=== PATIENT | female | born 1950 | race Caucasian/White ===

== ENCOUNTER → 2016-06-23 | Outpatient (CLI) | payer BC ==
--- NOTE | 2016-06-23 11:42 | KCIC ---
PROCEDURE Two-view chest HISTORY Upper respiratory infection with cough, congestion, fatigue for 1 week COMPARISON None FINDINGS Two views of the chest are submitted. There is no infiltrate, pleural fluid, pneumothorax. Heart size is considered within normal limits. Mild deformity of left posterolateral 6th rib is likely old. IMPRESSION 1. There is no significant infiltrate. Electronically signed by: Harvinder Arauz MD (Jun 23, 2016 11:41:02)
== END | disposition home or self-care (01) ==
LOC: KCIC 11:06
PROVIDERS: ATTEND Nurse Practitioner Family
DX: J06.9 Acute upper respiratory infection, unspecified (principal); R05 Cough; R09.81 Nasal congestion; R53.83 Other fatigue
CPT/HCPCS: 71020

== ENCOUNTER → 2016-09-26 | Outpatient (CLI) | payer BC, MEDICARE ==
[~2016-09-26] MED LIST: REGADENOSON 0.4 MG/5 ML DISP.SYRIN. IV ONE; SOTA80TA48 PO
--- NOTE | 2016-09-26 13:06 | RAD ---
APPROVED REPORT Patient Location : OUT-PATIENT Indications Varicose Veins Deep System Deep Venous Thrombosis present : No Deep Venous Reflux present : No Findings The right and left great saphenous veins are normal in caliber at approximately 4 mm. No evidence of reflux is demonstrated in the bilateral greater saphenous veins. The bilateral lesser saphenous veins were not well visualized. The bilateral saphenofemoral junctions do not demonstrate any evidence of thrombus. Critical Notification Critical Value: No <Conclusion> Negative for reflux in the bilateral greater saphenous veins. Bilateral lesser saphenous veins not well visualized No evidence of perforators bilaterally.
--- NOTE | 2016-09-26 13:09 | CARD ---
APPROVED REPORT EXAM: Two-dimensional and M-mode echocardiogram with Doppler and color Doppler. Other Information Quality : GoodHR: 68bpm Rhythm : NSR INDICATION A fib, Dyspnea on exertion Echo Enhancing Agent Indication: Rule Out Septal Defect Agent/Amount Used: Agitated Saline 8mL 2D DIMENSIONS RVDd2.4 (2.9-3.5cm)Left Atrium(2D)2.5 (1.6-4.0cm) IVSd0.7 (0.7-1.1cm)Aortic Root(2D)2.5 (2.0-3.7cm) LVDd4.1 (3.9-5.9cm)LVOT Diameter2.0 (1.8-2.4cm) PWd0.5 (0.7-1.1cm)LVDs2.5 (2.5-4.0cm) FS (%) 38.4 %SV51.9 ml LVEF(%)69.1 (>50%) Aortic Valve AoV Peak Bala.135.6cm/sAoV VTI32.5cm AO Peak GR.7.4mmHgLVOT Peak Bala.88.3cm/s AO Mean GR.4mmHgAVA (VMAX)2.00cm2 AI P 1/2 Itzq409od Mitral Valve MV E Rosgirrr296.9cm/sMV E Peak Gr.4mmHg MV DECEL QMEG301xmCR A Uivnzmss89.9cm/s MV E Mean Gr.1mmHgE/A Ratio1.7 MV A Bufjtkjs32gy Tricuspid Valve TR P. Hbrzreju096ce/sTR Peak Gr.39mmHg Pulmonary Vein S1 Nbwcocrj04.6cm/sD2 Xypznaqv20.1cm/s PVa ldanqnuy64zdtq LEFT VENTRICLE The left ventricle is normal size. There is normal left ventricular wall thickness. The left ventricu lar systolic function is normal and the ejection fraction is within normal range. The Ejection Fracti on is 60-65%. There is normal LV segmental wall motion. The left ventricular diastolic function and f illing is normal for age. RIGHT VENTRICLE The right ventricle is normal size. There is normal right ventricular wall thickness. The right ventr icular systolic function is normal. ATRIA The left atrium size is normal. The right atrium size is normal. The atrial septum is aneurysmal with no evidence of atrial septal defect or patent foramen ovale by 2-D or Doppler imaging. Injection of bubbles confirmed no interatrial shunt. AORTIC VALVE The aortic valve is mildly sclerotic. The aortic valve is trileaflet. Doppler and Color Flow revealed mild aortic regurgitation. There is no significant aortic valvular stenosis. MITRAL VALVE The mitral valve leaflets are thickened. There is no evidence of mitral valve prolapse. There is no m itral valve stenosis. Doppler and Color Flow revealed mild mitral regurgitation. TRICUSPID VALVE Doppler and Color Flow revealed mild tricuspid regurgitation. The pulmonary artery systolic pressure is estimated at 42 mmHg. There is mild pulmonary hypertension. PULMONIC VALVE The pulmonic valve is obscured, unable to assess. GREAT VESSELS The aortic root is normal in size. The ascending aorta is normal in size. The IVC is normal in size a nd collapses >50% with inspiration. PERICARDIAL EFFUSION There is no evidence of significant pericardial effusion. Critical Notification Critical Value: No <Conclusion> The left ventricular systolic function is normal and the ejection fraction is within normal range. Th e Ejection Fraction is 60-65%. There is normal LV segmental wall motion. The atrial septum is aneurysmal with no evidence of atrial septal defect or patent foramen ovale by 2 -D or Doppler imaging. Injection of bubbles confirmed no interatrial shunt. Doppler and Color Flow revealed mild aortic regurgitation. Doppler and Color Flow revealed mild mitral regurgitation.
--- NOTE | 2016-09-26 14:21 | RAD ---
APPROVED REPORT Test Type: Pharmacological Stress Nurse/Tech: Haylie Grimes R.N. Test Indications: dyspnea Cardiac History: afib, Medications: see ehr Medical History: hypoglycemia Resting ECG: sr Resting Heart Rate: 58 bpm Resting Blood Pressure: 125/67mmHg Pretest Chest Pain: No chest pain Nurse/Tech Notes lungs cta, heart tones regular, good radial pulse Consent: The procedure was explained to the patient in lay terms. Informed consent was witnessed. Shahzad eout was entered into [employer]. History and Stress Test performed by Haylie Grimes R.N. Pharm. Details Pharmacologic stress testing was performed using 0.4mg per 5ml of regadenoson given intravenously ove r 7-10 seconds. Stress Symptoms No chest pain or symptoms.Dyspnea POST EXERCISE Reason for Termination: Infusion complete Target HR: No Max HR: 108 bpm Max Blood Pressure: 123/58mmHg Chest Pain: No. Arrhythmia: No. INTERPRETATION Stress EKG Conclusion: The resting EKG showed a sinus rhythm with mild nonspecific ST T-wave changes. The stress EKG showed mild further ST-T wave changes in the inferior leads that was not diagnostic of ischemia. Imaging Protocol IMAGE PROTOCOL: Rest Tc-99m/stress Tc-99m 1 day Rest: Stress: Viability: Radiopharm.Tc99m BvqgcxguuEn03b Sestamibi Dose10.9mCi 32mCi Duration 15min. 10min. Img Date 09/26/2016 09/26/2016 Inj-Img Vhbk86kja. 90min. Rest Admin Site:IV - Left AntecubitalAdministrator:Anisa Barboza RT (R)(N) Stress Admin Site: IV - Left AntecubitalAdministrator: ERICKSON Strauss, ARRT (R)(N) STRESS DATA End Diast. Vol.42.0mlAv. Heart Rate80.0bpm End Syst. Vol.3.0mlCO Index BSA0.0L/min Myocardial Mass88.0gEject. Kipeweue31.0% Stress Rates Pk. Fill Rate4.42EDV/secLVtime Pk. Fill 188.45msec Pk. Empty Rate5.59ESV/secLVtime Pk. Exgne126.94msec 1/3 Pk. Fill0.76EDV/sec Stress Scores Regional WT0.00Summed WT0.00 Regional WM0.00Summed WM0.00 LV Perfusion The stress scans showed no significant defects. The rest scans showed no significant defects. Nuclear imaging shows no reversible ischemia or infarct. Wall Motion Normal left ventricular systolic function with an ejection fraction of greater than 70%. LV Perf. Quant 17 Seg. SSS0.00 17 Seg. SRS0.00 17 Seg. SDS0.00 Stress Defect Extent (% LAD)0.00Rest Defect Extent (% LAD)0.00Rev. Defect Extent (% LAD)0.00 Stress Defect Extent (% LCX) 0.00Rest Defect Extent (% LCX)0.00Rev. Defect Extent (% LCX)0.00 Stress Defect Extent (% RCA)0.00Rest Defect Extent (% RCA)0.00Rev. Defect Extent (% RCA)0.00 Stress Defect Extent (% KELLY)0.00Rest Defect Extent (% KELLY)0.00Rev. Defect Extent (% KELLY)0.00 Conclusion 1. No EKG changes with exertion that are diagnostic for ischemia. 2. Nuclear imaging shows no reversible ischemia or infarct. 3. Normal left ventricular systolic function with an ejection fraction of greater than 70%. 4. Low risk Lexiscan nuclear stress test.
== END | disposition home or self-care (01) ==
LOC: NM 08:02
PROVIDERS: ATTEND Internal Medicine Cardiovascular Disease
DX: I08.3 Combined rheumatic disorders of mitral, aortic and tricuspid valves (principal); I27.2 Other secondary pulmonary hypertension; I48.91 Unspecified atrial fibrillation; I83.93 Asymptomatic varicose veins of bilateral lower extremities
CPT/HCPCS: 78452; 93017; 93970; 96374; 96375; 96376; A9500; C8929; J2785

== ENCOUNTER → 2017-04-28 | Outpatient (CLI) | payer MEDICARE, BC ==
[2017-04-28 08:20] LABS: ISTAT CREATININE 0.8 mg/dL (0.6-1.1)
[2017-04-28] MEDS: GADOBUTROL 7.5 MMOL/7.5 ML VIAL IV (08:30)
== END | disposition home or self-care (01) ==
LOC: KCIC MRI 07:41
DX: I73.9 Peripheral vascular disease, unspecified (principal); D35.2 Benign neoplasm of pituitary gland; H53.2 Diplopia; G93.9 Disorder of brain, unspecified; J32.9 Chronic sinusitis, unspecified
CPT/HCPCS: 70553; 82565; A9585

== ENCOUNTER 2017-05-22 10:27 | Inpatient (IN) | payer MEDICARE, BC ==
[2017-05-22] MEDS: IV NORMAL SALINE 500ML BAG 500 ML IV ×2 (11:08)
[2017-05-22 11:09] LABS: ANION GAP 13 (6-14); BLOOD UREA NITROGEN 15 mg/dL (7-20); CALCIUM 8.4 mg/dL (8.5-10.1); CARBON DIOXIDE 25 mmol/L (21-32); CHLORIDE 97 mmol/L (98-107); CREATININE 0.6 mg/dL (0.6-1.0); GFR 100.3; GLUCOSE 115 mg/dL (70-99); SODIUM 135 mmol/L (136-145)
[2017-05-22 11:12] LABS: BASO % 0 % (0-3); EOS % 0 % (0-3); HEMOGLOBIN 14.3 g/dL (12.0-15.5); LYMPH # 0.6 x10^3/uL (1.0-4.8); LYMPH % 5 % (24-48); MEAN CORPUSCULAR HEMOGLOBIN 33 pg (25-35); MEAN CORPUSCULAR HGB CONC 34 g/dL (31-37); MEAN CORPUSCULAR VOLUME 98 fL (79-100); MONO # 0.6 x10^3/uL (0.0-1.1); MONO % 5 % (0-9); NEUT # 9.5 x10^3uL (1.8-7.7); NEUT % 89 % (31-73); PLATELET COUNT 261 x10^3/uL (140-400); RED BLOOD COUNT 4.29 x10^6/uL (3.50-5.40); RED CELL DISTRIBUTION WIDTH 12.8 % (11.5-14.5); WHITE BLOOD COUNT 10.7 x10^3/uL (4.0-11.0)
[2017-05-22 11:15] LABS: ALBUMIN 3.4 g/dL (3.4-5.0); ALK PHOS 95 U/L (46-116); ALT (SGPT) 19 U/L (14-59); AST (SGOT) 29 U/L (15-37); DIRECT BILIRUBIN 0.2 mg/dL (0.0-0.2); LIPASE 138 U/L (73-393); TOTAL BILIRUBIN 0.6 mg/dL (0.2-1.0); TOTAL PROTEIN 6.3 g/dL (6.4-8.2)
[2017-05-22] MEDS: ONDANSETRON PF 4 MG/2 ML VIAL. IV ×2 (11:17→16:48)
[2017-05-22 11:18] LABS: ADD MAN DIFF? YES
[2017-05-22 11:18] LABS: TROPONINI < 0.017 ng/mL (0.000-0.055)
[2017-05-22 11:32] LABS: LACTIC ACID 1.4 mmol/L (0.4-2.0)
[2017-05-22 11:40] LABS: INFLUENZA A PATIENT NEGATIVE (NEGATIVE); INFLUENZA B PATIENT NEGATIVE (NEGATIVE); OBC FLU VALID
[2017-05-22 13:04] LABS: BILIRUBIN,URINE NEGATIVE (NEG); CLARITY,URINE CLEAR; COLOR,URINE YELLOW; GLUCOSE,URINE NEGATIVE (NEG); NITRITE,URINE NEGATIVE (NEG); PROTEIN,URINE NEGATIVE (NEG-TRACE)
[2017-05-22 13:23] LABS: BACTERIA,URINE 0 /HPF (0-FEW); SQUAMOUS EPITHELIAL CELL,UR FEW /LPF
[2017-05-22 13:38] LABS: % BANDS 3 % (0-9); % EOS 2 % (0-5); % LYMPHS 5 % (24-48); % MONOS 5 % (0-10); % SEGS 85 % (35-66)
[2017-05-22 13:41] LABS: PLT ESTIMATE ADEQUATE (ADEQUATE)
[2017-05-22] MEDS ORDERED: MORPHINE SULFATE 2 MG/ML DISP.SYRIN. IV (13:45)
[2017-05-22] MEDS: IV NORMAL SALINE 1000ML BAG 1,000 ML IV ×3 (13:57→22:36)
[2017-05-22] MEDS: OSELTAMIVIR 75 MG CAPSULE PO ×2 (13:58→21:27)
[2017-05-22] MEDS ORDERED: CONTRAST GIVEN MC (14:00)
[2017-05-22] MEDS: IOHEXOL 300 MG/ML 100ML VIAL. IV (14:02)
[2017-05-22] MEDS: DIPHENOXYLATE/ATROPINE TABLET. PO (18:00)
[2017-05-22] MEDS ORDERED: ONDANSETRON PF 4 MG/2 ML VIAL. IV (20:00)
[2017-05-22] MEDS ORDERED: PROCHLORPERAZINE 5 MG TABLET. PO (20:00)
[2017-05-22 20:18] LABS: C DIFF BY PCR Negative (Negative)
[2017-05-22] MEDS: PROCHLORPERAZINE 10 MG/2 ML VIAL. IV (20:20)
[2017-05-22] MEDS: SOTALOL 80 MG TABLET. PO (21:00)
[2017-05-22] MEDS: ENOXAPARIN 40 MG/0.4 ML SYRINGE. SQ (21:27)
[2017-05-23 05:54] LABS: ADD MAN DIFF? NO
[2017-05-23 06:27] LABS: BASO % 0 % (0-3); EOS % 0 % (0-3); HEMATOCRIT 33.5 % (36.0-47.0); HEMOGLOBIN 11.6 g/dL (12.0-15.5); LYMPH # 1.3 x10^3/uL (1.0-4.8); LYMPH % 30 % (24-48); MEAN CORPUSCULAR HEMOGLOBIN 34 pg (25-35); MEAN CORPUSCULAR HGB CONC 35 g/dL (31-37); MEAN CORPUSCULAR VOLUME 99 fL (79-100); MONO # 0.4 x10^3/uL (0.0-1.1); MONO % 9 % (0-9); NEUT # 2.7 x10^3uL (1.8-7.7); NEUT % 61 % (31-73); PLATELET COUNT 181 x10^3/uL (140-400); RED BLOOD COUNT 3.38 x10^6/uL (3.50-5.40); WHITE BLOOD COUNT 4.5 x10^3/uL (4.0-11.0)
[2017-05-23 06:28] LABS: ANION GAP 10 (6-14); BLOOD UREA NITROGEN 11 mg/dL (7-20); CALCIUM 8.1 mg/dL (8.5-10.1); CARBON DIOXIDE 24 mmol/L (21-32); CHLORIDE 105 mmol/L (98-107); CREATININE 0.6 mg/dL (0.6-1.0); GFR 100.3; GLUCOSE 86 mg/dL (70-99); POTASSIUM 3.5 mmol/L (3.5-5.1); SODIUM 139 mmol/L (136-145)
[2017-05-23] MEDS: DIPHENOXYLATE/ATROPINE TABLET. PO ×3 (08:26→20:38)
[2017-05-23] MEDS: OSELTAMIVIR 75 MG CAPSULE PO ×2 (09:38→20:38)
[2017-05-23] MEDS: SOTALOL 80 MG TABLET. PO ×2 (09:39→20:38)
[2017-05-23] MEDS: IV NORMAL SALINE 1000ML BAG 1,000 ML IV ×3 (09:42→20:39)
[2017-05-23 19:15] LABS: MRSA BY PCR Negative (Negative)
[2017-05-23] MEDS: ENOXAPARIN 40 MG/0.4 ML SYRINGE. SQ (20:37)
[2017-05-24] MEDS: DIPHENOXYLATE/ATROPINE TABLET. PO ×3 (08:31→20:57)
[2017-05-24] MEDS: OSELTAMIVIR 75 MG CAPSULE PO ×2 (08:33→20:57)
[2017-05-24] MEDS: SOTALOL 80 MG TABLET. PO ×2 (08:39→20:58)
[2017-05-24 10:45] LABS: ANION GAP 8 (6-14); BLOOD UREA NITROGEN 2 mg/dL (7-20); CALCIUM 7.6 mg/dL (8.5-10.1); CARBON DIOXIDE 30 mmol/L (21-32); CHLORIDE 104 mmol/L (98-107); CREATININE 0.6 mg/dL (0.6-1.0); GFR 100.3; GLUCOSE 113 mg/dL (70-99); SODIUM 142 mmol/L (136-145)
[2017-05-24 10:49] LABS: POTASSIUM 2.8 mmol/L (3.5-5.1)
[2017-05-24] MEDS: POTASSIUM CHLORIDE 20 MEQ TABLET.ER. PO ×2 (11:01→15:22)
[2017-05-24] MEDS: IV NORMAL SALINE 1000ML BAG 1,000 ML IV ×2 (15:23→23:23)
[2017-05-24] MEDS: ENOXAPARIN 40 MG/0.4 ML SYRINGE. SQ (20:57)
[2017-05-25 05:20] LABS: ADD MAN DIFF? NO
[2017-05-25 05:38] LABS: BASO % 0 % (0-3); EOS # 0.1 x10^3/uL (0.0-0.7); EOS % 3 % (0-3); HEMATOCRIT 36.2 % (36.0-47.0); HEMOGLOBIN 12.4 g/dL (12.0-15.5); LYMPH # 2.4 x10^3/uL (1.0-4.8); LYMPH % 52 % (24-48); MEAN CORPUSCULAR HEMOGLOBIN 34 pg (25-35); MEAN CORPUSCULAR HGB CONC 34 g/dL (31-37); MEAN CORPUSCULAR VOLUME 98 fL (79-100); MONO # 0.6 x10^3/uL (0.0-1.1); MONO % 13 % (0-9); NEUT # 1.4 x10^3uL (1.8-7.7); NEUT % 32 % (31-73); PLATELET COUNT 203 x10^3/uL (140-400); RED BLOOD COUNT 3.69 x10^6/uL (3.50-5.40); RED CELL DISTRIBUTION WIDTH 12.8 % (11.5-14.5); WHITE BLOOD COUNT 4.5 x10^3/uL (4.0-11.0)
[2017-05-25 06:03] LABS: ANION GAP 6 (6-14); BLOOD UREA NITROGEN 1 mg/dL (7-20); CALCIUM 8.4 mg/dL (8.5-10.1); CARBON DIOXIDE 30 mmol/L (21-32); CHLORIDE 105 mmol/L (98-107); CREATININE 0.5 mg/dL (0.6-1.0); GFR 123.8; GLUCOSE 100 mg/dL (70-99); POTASSIUM 3.9 mmol/L (3.5-5.1); SODIUM 141 mmol/L (136-145)
[2017-05-25] MEDS: SOTALOL 80 MG TABLET. PO (07:50)
[2017-05-25] MEDS: OSELTAMIVIR 75 MG CAPSULE PO (07:50)
[2017-05-25] MEDS: DIPHENOXYLATE/ATROPINE TABLET. PO (07:50)
== END 2017-05-25 12:17 | disposition home or self-care (01) | DRG 392 ==
LOC: ER 10:27 → 1 WEST ICU 13:40 → 6 SOUTH 20:03
PROC: 5A09357 Assistance with Respiratory Ventilation, Less than 24 Consecutive Hours, Continuous Positive Airway Pressure (ICD-10-PCS; principal; 2017-05-23)
PROC: 5A09357 Assistance with Respiratory Ventilation, Less than 24 Consecutive Hours, Continuous Positive Airway Pressure (ICD-10-PCS; 2017-05-24)
DX: K52.9 Noninfective gastroenteritis and colitis, unspecified (principal); I95.9 Hypotension, unspecified; I48.91 Unspecified atrial fibrillation; K91.2 Postsurgical malabsorption, not elsewhere classified; J98.4 Other disorders of lung; K91.1 Postgastric surgery syndromes; D49.6 Neoplasm of unspecified behavior of brain; E87.6 Hypokalemia; E86.0 Dehydration; C44.91 Basal cell carcinoma of skin, unspecified; G47.33 Obstructive sleep apnea (adult) (pediatric); I73.9 Peripheral vascular disease, unspecified; J32.9 Chronic sinusitis, unspecified; K21.9 Gastro-esophageal reflux disease without esophagitis; K27.9 Peptic ulcer, site unspecified, unspecified as acute or chronic, without hemorrhage or perforation; K57.90 Diverticulosis of intestine, part unspecified, without perforation or abscess without bleeding; Z79.82 Long term (current) use of aspirin; Z80.9 Family history of malignant neoplasm, unspecified; Z86.011 Personal history of benign neoplasm of the brain; Z87.11 Personal history of peptic ulcer disease; Z90.3 Acquired absence of stomach [part of]
CPT/HCPCS: 36415; 71045; 74177; 80048; 80076; 81001; 83605; 83690; 84484; 85007; 85025; 87040; 87045; 87086; 87205; 87324; 87641; 87804; 87804-59; 93005; 96361; 96374; 97161-GP; 99285; 99285-25; J0780; J1650; J2405; J7030; J7040; Q9967

== ENCOUNTER → 2017-06-23 | Outpatient (CLI) | payer MEDICARE, BC | END | disposition home or self-care (01) | LOC: KCIC US 08:56 | DX: R22.2 Localized swelling, mass and lump, trunk (principal) | CPT/HCPCS: 76882 ==

== ENCOUNTER → 2017-06-30 | Outpatient (CLI) | payer MEDICARE, BC ==
[2017-06-30] MEDS: IOHEXOL 300 MG/ML 100ML VIAL. IV (09:03)
== END | disposition home or self-care (01) ==
LOC: KCIC CT 08:38
DX: R22.2 Localized swelling, mass and lump, trunk (principal)
CPT/HCPCS: 72193; Q9967

== ENCOUNTER → 2019-02-03 | Outpatient (CLI) | payer MEDICARE, BC ==
[2017-05-25 08:05] VITALS: BP 103/51
[~2019-02-03] MED LIST changes: +DIPH1TAB PO; -REGADENOSON 0.4 MG/5 ML DISP.SYRIN. IV ONE
[2019-02-03 10:29] LABS: BASO % 0 % (0-3); EOS % 0 % (0-3); HEMATOCRIT 41.7 % (36.0-47.0); HEMOGLOBIN 14.4 g/dL (12.0-15.5); LYMPH # 2.6 x10^3/uL (1.0-4.8); LYMPH % 32 % (24-48); MEAN CORPUSCULAR HEMOGLOBIN 34 pg (25-35); MEAN CORPUSCULAR HGB CONC 34 g/dL (31-37); MEAN CORPUSCULAR VOLUME 97 fL (79-100); MONO # 0.6 x10^3/uL (0.0-1.1); MONO % 8 % (0-9); NEUT # 4.8 x10^3/uL (1.8-7.7); NEUT % 60 % (31-73); PLATELET COUNT 295 x10^3/uL (140-400); RED BLOOD COUNT 4.29 x10^6/uL (3.50-5.40); RED CELL DISTRIBUTION WIDTH 13.5 % (11.5-14.5); WHITE BLOOD COUNT 8.1 x10^3/uL (4.0-11.0)
[2019-02-03 10:47] LABS: ALBUMIN 3.9 g/dL (3.4-5.0); CALCIUM 8.9 mg/dL (8.5-10.1); CREATININE 0.7 mg/dL (0.6-1.0); GFR 83.5; POTASSIUM 3.8 mmol/L (3.5-5.1); TOTAL BILIRUBIN 0.4 mg/dL (0.2-1.0); TOTAL PROTEIN 7.7 g/dL (6.4-8.2)
== END | disposition home or self-care (01) ==
LOC: LAB 10:07
PROVIDERS: ATTEND Nurse Practitioner Family
DX: R10.2 Pelvic and perineal pain (principal)
CPT/HCPCS: 36415; 80053; 85025

== ENCOUNTER → 2019-02-10 | Outpatient (CLI) | payer MEDICARE, BC ==
[2017-05-25 08:05] VITALS: BP 103/51
--- NOTE | 2019-02-10 16:26 | KCIC ---
PELVIS W/TV History: Right pelvic pain. Comparison: None. Technique: Grayscale and color Doppler imaging of the pelvis was performed using transabdominal and transvaginal technique. Findings: The uterus measures 4.8 x 2.2 x 3.1 cm in length. Heterogeneous appearance of the uterus. Scattered calcifications within the uterus. The endometrial stripe measures 1 mm, within normal limits. Right ovary measures 1.6 x 1.0 x 1.7 cm and is unremarkable. Left ovary not seen due to positioning and overlying bowel gas. No left adnexal fluid collection or mass identified. No free fluid. IMPRESSION: 1. Heterogeneous uterus with calcifications. 2. Left ovary not identified. Electronically signed by: Joshua Howe DO (02/10/2019 4:23 PM) [facility]
== END | disposition home or self-care (01) ==
LOC: KCIC US 11:58
PROVIDERS: ATTEND Nurse Practitioner Family
DX: N85.8 Other specified noninflammatory disorders of uterus (principal)
CPT/HCPCS: 76830; 76856

== ENCOUNTER → 2019-04-26 | Outpatient (CLI) | payer MEDICARE, BC ==
[2017-05-25 08:05] VITALS: BP 103/51
--- NOTE | 2019-04-26 12:36 | KCIC ---
Bilateral digital screening mammograms and tomosynthesis Reason for examination: Routine screening. Comparison is made to previous study dated July 13, 2012 Routine CC and MLO digital views obtained. Interpretation was made with the benefit of CAD. The skin and nipples show no abnormalities. No abnormal lymph nodes are seen. The breast parenchyma is scattered fibroglandular elements. (Breast density: Category B.) There are no suspicious masses, suspicious calcifications or architectural distortions. Breast density has decreased since prior exam due to involutional changes. Benign calcifications are present. Impression: Negative mammogram. Recommend routine screening. BI-RADS Category 1: Negative. "Our facility is accredited by the [employer] Mammography Program." This patient's information has been entered into a reminder system for the patient to be notified with the results of her examination and a target date for the next mammogram. Electronically signed by: Álvaor Mix MD (04/26/2019 12:33 PM) [id number]
== END | disposition home or self-care (01) ==
LOC: KCIC MAMMO 08:59
PROVIDERS: ATTEND Family Medicine
DX: Z12.31 Encounter for screening mammogram for malignant neoplasm of breast (principal); N64.89 Other specified disorders of breast
CPT/HCPCS: 77063; 77067

== ENCOUNTER 2019-04-30 11:16 | Emergency (ER) | payer MEDICARE, BC ==
[2019-04-30] MEDS ORDERED: IV NORMAL SALINE 1000ML BAG 1,000 ML IV ONE (11:45)
--- NOTE | 2019-04-30 11:51 | PHYS DOC ---
Past Medical History Past Medical History: A-Fib, Other Additional Past Medical Histor: pyloric sten,gastritis,dumping syn,h.pylori,basal cell carc.,sleep ap Past Surgical History: Tonsillectomy, Other Additional Past Surgical Histo: gastrectomy w/ vagotomy, adenoids Alcohol Use: None Drug Use: None Adult General Chief Complaint Chief Complaint: DIZZY/LIGHT HEADED HPI HPI Patient is a 68-year-old female who presents with complaint of near syncopal event at home. She states that she got very lightheaded, feeling like she was given a pass out and had to grab onto something otherwise she would've fallen. She denies any actual vertiginous-type symptoms. She denies having developed any nausea or vomiting. She also denies any chest pain or shortness breath. Patient states that symptoms were worsened when she was upright. Indicates that symptoms have improved but she does still feel a little lightheaded. She denies any headache, speech deficit, motor or sensory deficits. Patient does indicate that she has a history of atrial fibrillation.[] Review of Systems Review of Systems Constitutional: Denies fever or chills [] Respiratory: Denies cough or shortness of breath [] Cardiovascular: No additional information not addressed in HPI [] GI: Denies abdominal pain, nausea, vomiting or diarrhea [] Integument: Denies rash or skin lesions [] Neurologic: Denies headache, focal weakness or sensory changes [] All other systems were reviewed and found to be within normal limits, except as documented in this note. Current Medications Current Medications Current Medications Medications (Trade) Dose Ordered Sig/Ray Start Time Stop Time Status Last Admin Dose Admin Sodium Chloride 1,000 ml @ 1,000 mls/hr 1X ONCE 04/30/19 11:45 04/30/19 12:44 DC 04/30/19 11:58 1,000 MLS/HR Allergies Allergies Allergies Coded Allergies Type Severity Reaction Last Updated Verified No Known Drug Allergies 09/26/16 No Physical Exam Physical Exam Constitutional: Well developed, well nourished, no acute distress, non-toxic appearance. [] HENT: Normocephalic, atraumatic, bilateral external ears normal, oropharynx moist, no oral exudates, nose normal. [] Eyes: PERRLA, EOMI, conjunctiva normal, no discharge. [] Neck: Normal range of motion, no tenderness, supple. [] Cardiovascular: Regular rate and rhythm[] Lungs & Thorax: Bilateral breath sounds clear to auscultation [] Abdomen: Bowel sounds normal, soft, no tenderness. [] Skin: Warm, dry, no erythema, no rash. [] Extremities: No tenderness, no cyanosis, no clubbing, ROM intact. [] Neurologic: Alert and oriented X 3, no focal deficits noted. [] Current Patient Data Vital Signs Vital Signs Date Time Temp Pulse Resp B/P (MAP) Pulse Ox O2 Delivery O2 Flow Rate FiO2 04/30/19 13:00 72 18 98 04/30/19 11:31 98.7 110/59 (76) Room Air 98.7 Lab Values Laboratory Tests Test 04/30/19 11:48 White Blood Count 6.5 x10^3/uL (4.0-11.0) Red Blood Count 4.07 x10^6/uL (3.50-5.40) Hemoglobin 13.5 g/dL (12.0-15.5) Hematocrit 39.5 % (36.0-47.0) Mean Corpuscular Volume 97 fL (79-100) Mean Corpuscular Hemoglobin 33 pg (25-35) Mean Corpuscular Hemoglobin Concent 34 g/dL (31-37) Red Cell Distribution Width 13.1 % (11.5-14.5) Platelet Count 276 x10^3/uL (140-400) Neutrophils (%) (Auto) 48 % (31-73) Lymphocytes (%) (Auto) 42 % (24-48) Monocytes (%) (Auto) 10 % (0-9) H Eosinophils (%) (Auto) 0 % (0-3) Basophils (%) (Auto) 0 % (0-3) Neutrophils # (Auto) 3.1 x10^3/uL (1.8-7.7) Lymphocytes # (Auto) 2.7 x10^3/uL (1.0-4.8) Monocytes # (Auto) 0.6 x10^3/uL (0.0-1.1) Eosinophils # (Auto) 0.0 x10^3/uL (0.0-0.7) Basophils # (Auto) 0.0 x10^3/uL (0.0-0.2) Sodium Level 136 mmol/L (136-145) Potassium Level 4.1 mmol/L (3.5-5.1) Chloride Level 97 mmol/L (98-107) L Carbon Dioxide Level 28 mmol/L (21-32) Anion Gap 11 (6-14) Blood Urea Nitrogen 14 mg/dL (7-20) Creatinine 0.7 mg/dL (0.6-1.0) Estimated GFR (Cockcroft-Gault) 83.5 BUN/Creatinine Ratio 20 (6-20) Glucose Level 87 mg/dL (70-99) Calcium Level 8.8 mg/dL (8.5-10.1) Magnesium Level 2.1 mg/dL (1.8-2.4) Total Bilirubin 0.3 mg/dL (0.2-1.0) Aspartate Amino Transferase (AST) 19 U/L (15-37) Alanine Aminotransferase (ALT) 13 U/L (14-59) L Alkaline Phosphatase 87 U/L (46-116) Troponin I Quantitative < 0.017 ng/mL (0.000-0.055) Total Protein 6.3 g/dL (6.4-8.2) L Albumin 3.8 g/dL (3.4-5.0) Albumin/Globulin Ratio 1.5 (1.0-1.7) Laboratory Tests 04/30/19 11:48 Laboratory Tests 04/30/19 11:48 EKG EKG [] Radiology/Procedures Radiology/Procedures [] Course & Med Decision Making Course & Med Decision Making Pertinent Labs and Imaging studies reviewed. (See chart for details) [] Dragon Disclaimer Dragon Disclaimer This electronic medical record was generated, in whole or in part, using a voice recognition dictation system. Departure Departure Impression: Primary Impression: Near syncope Additional Impression: Dehydration Disposition: HOME, SELF-CARE Condition: STABLE Referrals: CY GOLDSMITH MD (PCP) Patient Instructions: Dehydration, Adult, Syncope Problem Qualifiers ALLEY JONES Jr. DO Apr 30, 2019 11:51
[2019-04-30 12:03] LABS: BASO % 0 % (0-3); EOS % 0 % (0-3); HEMATOCRIT 39.5 % (36.0-47.0); HEMOGLOBIN 13.5 g/dL (12.0-15.5); LYMPH # 2.7 x10^3/uL (1.0-4.8); LYMPH % 42 % (24-48); MEAN CORPUSCULAR HEMOGLOBIN 33 pg (25-35); MEAN CORPUSCULAR HGB CONC 34 g/dL (31-37); MEAN CORPUSCULAR VOLUME 97 fL (79-100); MONO # 0.6 x10^3/uL (0.0-1.1); MONO % 10 % (0-9); NEUT # 3.1 x10^3/uL (1.8-7.7); NEUT % 48 % (31-73); PLATELET COUNT 276 x10^3/uL (140-400); RED BLOOD COUNT 4.07 x10^6/uL (3.50-5.40); RED CELL DISTRIBUTION WIDTH 13.1 % (11.5-14.5); WHITE BLOOD COUNT 6.5 x10^3/uL (4.0-11.0)
[2019-04-30 12:10] LABS: CALCIUM 8.8 mg/dL (8.5-10.1); CREATININE 0.7 mg/dL (0.6-1.0); GFR 83.5; POTASSIUM 4.1 mmol/L (3.5-5.1)
[2019-04-30 12:15] LABS: ALBUMIN 3.8 g/dL (3.4-5.0); ALBUMIN/GLOBULIN RATIO 1.5 (1.0-1.7); MAGNESIUM 2.1 mg/dL (1.8-2.4); TOTAL BILIRUBIN 0.3 mg/dL (0.2-1.0); TOTAL PROTEIN 6.3 g/dL (6.4-8.2)
[2019-04-30 14:05] VITALS: BP 113/59
--- NOTE | 2019-05-01 09:53 | EKG ---
[facility] [address] [place] [address] Test Date: 2019-04-30 Test Time: 11:43:04 Pat Name: TRISTIN VASQUEZ Department: Room: Gender: F [employer] Service Agent: : [id number] Requested By: ALLEY JONES Order Number: [id number] Reading MD: Measurements Intervals [place] Rate: 75 P: GA: QRS: -4 QRSD: 82 T: 40 QT: 370 QTc: 416 Interpretive Statements ATRIAL FLUTTER LEFTWARD AXIS QRS(T) CONTOUR ABNORMALITY CONSIDER ANTEROSEPTAL MYOCARDIAL DAMAGE ABNORMAL ECG RI6.01 No previous ECG available for comparison
== END 2019-04-30 14:14 | disposition home or self-care (01) ==
LOC: ER 11:16
DX: R55 Syncope and collapse (principal); E86.0 Dehydration; I48.91 Unspecified atrial fibrillation
CPT/HCPCS: 36415; 80053; 83735; 84484; 85025; 93005; 96360; 99285; J7030

== ENCOUNTER → 2019-05-10 | Outpatient (CLI) | payer MEDICARE, BC ==
[2019-04-30 14:05] VITALS: BP 113/59
[~2019-05-10] MED LIST changes: +GADOTERATE 5 MMOL/10ML VIAL. IVP ONE
--- NOTE | 2019-05-10 11:27 | KCIC ---
MRI Brain with and without contrast History: Brain mass, new floaters in vision Technique: Multiplanar, multi sequential pre and postcontrast MR imaging was performed of the brain, dedicated images of the pituitary gland also obtained. Comparison: April 28, 2017 Findings: There is again enhancing sellar and suprasellar mass. This in greatest dimension measures about 1.5 cm AP by 2 cm transverse by 1.9 cm cc. Size and morphology are similar in the interval. As seen on the sagittal images, there appears to be preservation of the normal architecture of the pituitary gland inferiorly with the mass located immediately superiorly. There is again very thin dural tail extending anteriorly along the planum sphenoidale. Mass again contacts the undersurface of the optic chiasm with insinuation between the optic nerves bilaterally. There is again some T2 hyperintense signal of the right sellar region along the medial surface of the right supraclinoid internal carotid artery grossly unchanged, no previous coronal T2 sequence for comparison. Enhancement extends along the medial aspect of the right cavernous sinus as seen previously. There is absence of the right A1 segment flow void as seen previously, patent anterior communicating artery. Mass extends to the region of expected aplastic right A1 segment, also contact of the undersurface of the distal left A1 segment. There is no evidence of recent infarct. There is no new intra-axial mass effect, midline shift, extra-axial fluid collection, or nodular parenchymal or leptomeningeal enhancement. There again multiple scattered foci of T2 and FLAIR hyperintense signal abnormality of the supratentorial parenchyma greatest of the frontal lobes and periatrial white matter, slightly progressed of the right periatrial white matter. There is again some increased CSF signal of the optic nerve sheaths bilaterally. There is minimal ethmoid air cell mucosal thickening. Mastoid air cells are aerated. Cerebellar tonsils are normal in location. There is mild heterogeneity of the marrow of the nonexpanded clivus as seen previously. Impression: 1. There is again sellar and suprasellar enhancing mass not significantly changed compared with the April 2017 exam. Overall features suggest this may be a meningioma rather than pituitary adenoma as there appears to be some preservation of the normal pituitary gland and appearance of a thin dural tail extending anteriorly. 2. There is again increased CSF signal of the optic nerve sheaths bilaterally, nonspecific although can be associated with intracranial hypertension. There is again multifocal T2 and FLAIR hyperintense signal abnormality of the supratentorial parenchyma bilaterally somewhat increased in the interval of the right periatrial white matter, nonspecific findings which could be due to chronic microvascular ischemic disease in a patient this age, inflammatory demyelinating disease less common in a patient this age. Electronically signed by: Rajinder Arauz MD (05/10/2019 11:24 AM) [facility]
== END | disposition home or self-care (01) ==
LOC: KCIC MRI 09:26
PROVIDERS: ATTEND Family Medicine
DX: G93.89 Other specified disorders of brain (principal); J34.89 Other specified disorders of nose and nasal sinuses
CPT/HCPCS: 70553; A9575

== ENCOUNTER → 2020-02-15 | Outpatient (CLI) | payer MEDICARE, BC ==
[~2020-02-15] MED LIST changes: -GADOTERATE 5 MMOL/10ML VIAL. IVP ONE
[2020-02-15 10:03] LABS: ALBUMIN 3.7 g/dL (3.4-5.0); DIRECT BILIRUBIN 0.1 mg/dL (0.0-0.2); TOTAL BILIRUBIN 0.3 mg/dL (0.2-1.0); TOTAL PROTEIN 6.6 g/dL (6.4-8.2)
== END ==
LOC: LAB 09:05
PROVIDERS: ATTEND Podiatrist Foot & Ankle Surgery
DX: B35.1 Tinea unguium (principal)
CPT/HCPCS: 36415; 80076

== ENCOUNTER → 2020-08-07 | Outpatient (CLI) | payer MEDICARE, BC ==
--- NOTE | 2020-08-08 08:16 | RAD ---
Exam performed: 2 views of the chest. Indication: Reason: SHORTNESS OF AIR. / Spl. Instructions: / History: Date of Service: 08/07/2020 10:43 AM. Comparison : One view chest from 05/22/2017 Findings: PA and lateral radiographs of the chest reveal a normal cardiomediastinal contour. The lungs are some what hyperinflated, however clear. No pleural fluid is seen. The visualized osseous structures are u nremarkable. Impression: No acute cardiopulmonary process seen. Electronically signed by: Tomasa Blanc MD (08/08/2020 8:13 AM) [id number]
== END ==
LOC: RAD 10:32
PROVIDERS: ATTEND Internal Medicine Pulmonary Disease
DX: R06.02 Shortness of breath (principal)
CPT/HCPCS: 71046

== ENCOUNTER → 2020-10-30 | Outpatient (CLI) | payer MEDICARE, BC ==
--- NOTE | 2020-11-01 12:38 | RESP ---
DATE OF SERVICE: 10/30/2020 PULMONARY FUNCTION TEST The patient's FVC was 2.97, which is 116% predicted; FEV1 2.32, which is 120% predicted. FEV1/FVC ratio was normal. No bronchodilator was given. Total lung capacity was increased as well as residual volume was increased. Diffusion capacity was 132% predicted. IMPRESSION: 1. No evidence of obstructive airway disease. 2. No bronchodilators given. 3. Lung volumes consistent with air trapping and hyperinflation. 4. Increased diffusion capacity. LASHAWN/MAGEN DR: Lionel TID: [id number] CC: RIVER BEARDEN MD
== END ==
LOC: PF 08:34
PROVIDERS: ATTEND Internal Medicine Pulmonary Disease
DX: R06.02 Shortness of breath (principal)
CPT/HCPCS: 94010; 94618; 94726; 94729

== ENCOUNTER → 2020-11-28 | Outpatient (CLI) | payer MEDICARE, BC ==
[~2020-11-28] MED LIST changes: +REGADENOSON 0.4 MG/5 ML DISP.SYRIN. IV ONE
--- NOTE | 2020-11-28 12:34 | CARD ---
MR#: [id number] Date of Study: 11/28/2020 Ordering Physician: YANIRA QUINONEZ, Referring Physician: YANIRA QUINONEZ, Tech: Lidia Kinney, [facility] APPROVED REPORT EXAM: Two-dimensional and M-mode echocardiogram with Doppler and color Doppler. Other Information Quality : AverageHR: 80bpm INDICATION Dyspnea Chest Pain 2D DIMENSIONS Left Atrium(2D)2.4 (1.6-4.0cm)IVSd0.8 (0.7-1.1cm) Aortic Root(2D)3.1 (2.0-3.7cm)LVDd3.8 (3.9-5.9cm) LVOT Diameter1.8 (1.8-2.4cm)PWd0.9 (0.7-1.1cm) LVDs2.6 (2.5-4.0cm)FS (%) 30.9 % SV36.6 mlLVEF(%)59.3 (>50%) Aortic Valve AoV Peak Bala.114.4cm/sAoV VTI22.5cm AO Peak GR.5.2mmHgLVOT Peak Bala.92.6cm/s LVOT VTI 19.35cmAO Mean GR.3mmHg CRISTIANA (VMAX)1.46vr8EQO (VTI)2.29cm2 AI P 1/2 Dwka062tf Mitral Valve MV E Wdegtbdu54.8cm/sMV DECEL HSLQ510of MV A Vbztgzim60.2cm/sMV E Mean Gr.2mmHg MV IRX61xmQ/A Ratio1.0 MVA (PHT)3.17cm2 TDI E/Lateral E'7.9E/Medial E'8.5 Pulmonary Valve PV Peak Ogxxphtm82.6cm/sPV Peak Grad.2mmHg Tricuspid Valve TR P. Qodtzcvb525gr/sRAP VLBEFFRX6czIu TR Peak Gr.44tyKmXUWN15sfTx Pulmonary Vein S1 Ctspefbi79.5cm/sD2 Rqpupbay30.7cm/s PVa hcmvembp504cafi LEFT VENTRICLE The left ventricle is normal size. There is normal left ventricular wall thickness. The left ventricu lar systolic function is normal and the ejection fraction is within normal range. The Ejection Fracti on is 50-55%. There is normal LV segmental wall motion. Transmitral Doppler flow pattern is Grade II- pseudonormal filling dynamics. RIGHT VENTRICLE The right ventricle is normal size. There is normal right ventricular wall thickness. The right ventr icular systolic function is normal. ATRIA The left atrium size is normal. The right atrium size is normal. The interatrial septum is intact wit h no evidence for an atrial septal defect or patent foramen ovale as noted on 2-D or Doppler imaging. AORTIC VALVE The aortic valve is mildly thickened but opens well. Doppler and Color Flow revealed mild aortic regu rgitation. Calculated aortic valve area is 2.87 cm2 with maximum pressure gradient of 6 mmHg and mean pressure gradient of 3 mmHg. There is no significant aortic valvular stenosis. MITRAL VALVE The mitral valve is normal in structure and function. There is no evidence of mitral valve prolapse. There is no mitral valve stenosis. Doppler and Color-flow revealed trace to mild mitral regurgitation . TRICUSPID VALVE The tricuspid valve is normal in structure and function. Doppler and Color Flow revealed trace to mil d tricuspid regurgitation with an estimated PAP of 32 mmHg. There is no tricuspid valve stenosis. PULMONIC VALVE The pulmonic valve is not well visualized. Doppler and Color Flow revealed trace pulmonic valvular re gurgitation. GREAT VESSELS The aortic root is normal in size. The IVC is dilated. PERICARDIAL EFFUSION There is no evidence of significant pericardial effusion. Critical Notification Critical Value: No <Conclusion> The left ventricle is normal size. The left ventricular systolic function is normal and the ejection fraction is within normal range. The Ejection Fraction is 50-55%. Doppler and Color Flow revealed mild aortic regurgitation. There is no significant aortic valvular stenosis. Doppler and Color-flow revealed trace to mild mitral regurgitation. Doppler and Color Flow revealed trace to mild tricuspid regurgitation with an estimated PAP of 32 mmH g. Signed by : Phill Mabry MD Electronically Approved : 11/28/2020 12:34:10
--- NOTE | 2020-11-28 15:31 | RAD ---
MR#: [id number] Date of Study: 11/28/2020 Ordering Physician: YANIRA QUINONEZ Referring Physician: ELAINA KIM Tech: RT Thu Geronimo) (N) APPROVED REPORT Test Type: Pharmacological Stress Nurse/Tech: Haylie Grimes R.N. Test Indications: chest pain Cardiac History: afib, Medications: see ehr Medical History: see ehr Resting ECG: sr Resting Heart Rate: 67 bpm Resting Blood Pressure: 116/66mmHg Pretest Chest Pain: No chest pain Nurse/Tech Notes lungs cta, heart tones regular Consent: The procedure was explained to the patient in lay terms. Informed consent was witnessed. Shahzad eout was entered into [employer]. History and Stress Test performed by RT Grazyna (Jeevan) (N) Pharm. Details Pharmacologic stress testing was performed using 0.4mg per 5ml of regadenoson given intravenously ove r 7-10 seconds. Stress Symptoms No chest pain or symptoms. POST EXERCISE Reason for Termination: Infusion complete Max HR: 139 bpm Max Blood Pressure: 131/68mmHg Chest Pain: No. Arrhythmia: No. ST Change: No. INTERPRETATION Stress EKG Conclusion: The resting EKG shows a sinus rhythm and mild nonspecific ST T wave changes. The stress EKG shows no significant changes from baseline. No EKG evidence of stress-induced ischemia. Imaging Protocol IMAGE PROTOCOL: Rest Tc-99m/stress Tc-99m 1 day Rest: Stress: Viability: Radiopharm.Tc99m FjfnizopeBm76o Sestamibi Dgri85yWy 33mCi Duration 15min. 15min. Img Date 11/28/2020 11/28/2020 Inj-Img Spxd63rmq. 60min. Rest Admin Site:IV - Right AntecubitalAdministrator:RT Grazyna (Jeevan)(N) Stress Admin Site: IV - Right AntecubitalAdministrator: RT Grazyna (R)(N) STRESS DATA End Diast. Vol.41.0mlAv. Heart Rate85.0bpm End Syst. Vol.1.0mlCO Index BSA0.0L/min Myocardial Mass84.0gEject. Mqdixvez75.0% Stress Rates Pk. Fill Rate5.35EDV/secLVtime Pk. Fill 132.14msec Pk. Empty Rate7.63ESV/secLVtime Pk. Ywprq352.26msec 1/3 Pk. Fill2.98EDV/sec Stress Scores Regional WT0.00Summed WT0.00 Regional WM0.00Summed WM0.00 LV Perfusion The stress scans show no significant defects. The rest scans show no significant defects. Nuclear imaging shows no reversible ischemia or infarct. Wall Motion Left ventricular systolic function is normal with no regional wall motion abnormalities and an ejecti on fraction of greater than 70%. LV Perf. Quant 17 Seg. SSS0.00 17 Seg. SRS18.00 17 Seg. SDS0.00 Stress Defect Extent (% LAD)0.00Rest Defect Extent (% LAD)10.00Rev. Defect Extent (% LAD)0.00 Stress Defect Extent (% LCX) 0.00Rest Defect Extent (% LCX)71.30Rev. Defect Extent (% LCX)0.00 Stress Defect Extent (% RCA)0.00Rest Defect Extent (% RCA)46.70Rev. Defect Extent (% RCA)0.00 Stress Defect Extent (% KELLY)0.00Rest Defect Extent (% KELLY)32.80Rev. Defect Extent (% KELLY)0.00 Conclusion 1. No EKG evidence of stress-induced ischemia. 2. Nuclear imaging shows no reversible ischemia or infarct. 3. Normal left ventricular systolic function with an ejection fraction of greater than 70%. 4. Low risk Lexiscan nuclear stress test. Signed by : Phill Mabry MD Electronically Approved : 11/28/2020 15:30:48
== END ==
LOC: ECHO 08:43
PROVIDERS: ATTEND Internal Medicine Cardiovascular Disease
DX: I08.3 Combined rheumatic disorders of mitral, aortic and tricuspid valves (principal)
CPT/HCPCS: 78452; 93017; 93306; A9500; J2785

== ENCOUNTER → 2021-01-02 | Outpatient (CLI) | payer MEDICARE, BC ==
[~2021-01-02] MED LIST changes: -REGADENOSON 0.4 MG/5 ML DISP.SYRIN. IV ONE
--- NOTE | 2021-01-02 17:29 | KCIC ---
XR LUMBAR SPINE 4+V Clinical Indication: Reason: LBP X'S 2 YRS, NO INJURY Comparison: None. Findings: There is mild right convexity lower thoracic and lumbar scoliosis. There is degenerative endplate spu rring and sclerosis of the lumbar spine. There is suture material to the left of L4. The sacroiliac j oints are symmetric. No obvious opacity in the lung bases. On the oblique views a pars defect is not identified. The vertebral body height and alignment are maintained. There is moderate disc space narr owing throughout the lumbar spine with the exception of L1/L2. There is probable vacuum disc phenomen on at several levels. No acute fracture is identified. IMPRESSION: 1. No acute fracture or malalignment. 2. Mild to moderate degenerative spondylosis. Electronically signed by: Shorty Franco MD (01/02/2021 5:26 PM) [id number]
== END ==
LOC: KCIC 13:42
PROVIDERS: ATTEND Family Medicine
DX: M47.816 Spondylosis without myelopathy or radiculopathy, lumbar region (principal); M48.061 Spinal stenosis, lumbar region without neurogenic claudication; M41.85 Other forms of scoliosis, thoracolumbar region; M46.06 Spinal enthesopathy, lumbar region
CPT/HCPCS: 72110

== ENCOUNTER → 2021-01-15 | Outpatient (CLI) | payer MEDICARE, BC ==
[~2021-01-15] MED LIST changes: +ASPI-630 PO; +FLEC100T PO; +IOHEXOL 180 MG/ML 10 ML VIAL. ONE; +POLY17PO29 PO; +methylPREDNISolone ACETATE 40 MG/ML VIAL. ONE; +methylPREDNISolone ACETATE 80 MG/ML VIAL. ONE
--- NOTE | 2021-01-15 12:39 | PDOC1 ---
INITIAL PAIN CONSULT DATE OF SERVICE: DOS: DATE: 01/15/21 TIME: 12:34 CHIEF COMPLAINT: Chief Complaint: Low back and left lower extremity pain HISTORY OF PRESENT ILLNESS: 70-year-old female presents with history of pain low back and left lower extremity for about 2 years not the result of any specific injury or accident that she is aware but is been getting worse with time and walking to the point where it is radiating down into the left lower extremity posterior gluteus lateral thigh anterior thigh and into the back as well on both sides patient reports that becoming more constant is aching worse with walking standing changing positions better with sitting or laying down generally is not awaken from sleep at night does not affect her bowel bladder control but does affect her ability to walk up does not use any assistive devices to ambulate. Patient has had some stretching therapies in the past but nothing recently no chiropractic treatment or other physical therapy recently. Patient reports pain is getting worse with walking standing better with sitting or laying down rates her disability rating 0-10 10 being the worst is an 8 with family home responsibilities 9 with recreation social activity occupational activity and light support activities 8 with sexual behavior and 8 with self-care activities. Patient have plain films of the lumbar spine showing moderate to space narrowing throughout the lumbar spine with the exception of L1-L2 with vacuum disc phenomenon at several levels. Patient reports no loss of motor function but significant fatigability especially the left lower extremity with walking even more than 10 to 15 minutes. Patient reports when she is sitting down or laying down the pain is generally very well controlled and again does not awaken her from sleep. Patient reports no bowel or bladder incontinence. PAST MEDICAL HISTORY: PMH: Arthritis, gastritis, hyperlipidemia, atrial fibrillation, shortness of breath, hypoglycemia PREVIOUS SURGERIES: Past Surgical Hx: Gastrectomy with vagotomy, tonsillectomy, x4 CURRENT MEDICATIONS: Current Meds: Active Scripts Medications Dose Route/Sig Max Daily Dose Days Date Category Sotalol (Sotalol Hcl) 80 Mg Tablet 0.5 Tab PO BID 05/22/17 Reported Lomotil Tablet (Diphenoxylate Hcl/Atropine) 1 Each Tablet 1 Tab PO TID 04/28/17 Reported ALLERGIES; Allergies: Coded Allergies: No Known Drug Allergies (Unverified , 09/26/16) FAMILY HISTORY: Family Hx: Cancer and heart disease SOCIAL HISTORY: Social Hx: Patient is under alcohol does not smoke says any illegal illicit or recreational drugs is lives with her spouse lives locally in [facility] REVIEW OF SYSTEMS: ROS: Positive for those items mentioned in history of present illness, all systems are reviewed, otherwise negative ,and are complete full and well-documented on patient's chart. PHYSICAL EXAM: VS: Blood pressure 97/58 pulse 75 respirations 16 temperature 97.9 F height is 5 foot weight is 118 pounds. PE: PHYSICAL EXAMINATION: GENERAL: The patient is awake, alert, oriented, appropriate, very pleasant in demeanor, patient [place] by her . HEENT: Shows normocephalic, atraumatic. Extraocular movements are intact and symmetrical. Oral cavity: Mucous membranes moist and pink. Dentition is intact. NECK: Shows anterior throat supple without palpable lymphadenopathy noted. Swallow reflex symmetrical. CHEST: Shows normal on inspection. Breath sounds are clear bilaterally, no rales rhonchi or wheeze auscultated. HEART: Shows S1, S2 clear. No murmurs auscultated. ABDOMEN: Soft, nontender, nondistended, obese. No palpable organomegaly is noted. No rebound or guarding demonstrated. BACK: Shows spine grossly in the midline. Normal-appearing cervical lordotic curvature. There is slightly increased thoracic kyphosis, some flattening of the lumbar lordotic curvature. Lumbar paraspinous muscles show symmetrical on inspection, on palpation shows some moderate tenderness diffusely throughout the upper, middle and lower distribution of the paraspinous muscles without specific trigger points, without radiation of pain. The patient has good rotational motion of the lumbar spine, both laterally as well as extension and flexion without significant difficulty. No tenderness over the spinous processes, sacrum or sacroiliac regions. EXTREMITIES: Lower extremities show deep tendon reflexes 2+ in the patellar and tendo calcaneus tendons. Motor exam is 5 on a scale of 5 with right dorsiflexion, extension, quadriceps and hamstring flexion and 4/5 on the left. Peripheral pulses are 1+ posterior tibial. No peripheral edema is noted bilaterally. Lower extremities are warm and dry to touch, equal in color and appearance. Straight leg raise noted to be negative bilaterally. Gaenslen's and Shaji's maneuvers are good bilateral as well. The patient is able to stand, stand on toes without significant difficulty loss of balance does appear to favor the left lower extremity slightly with walking does not use any assistive devices to ambulate. SKIN: Shows warm and dry, good turgor. No edema. No sores, rashes or bruising throughout. IMPRESSION: Impression: 70-year-old female with approximate 2-year history increasing pain low back left lower extremity radicular fashion. Plain films lumbar spine as noted Arthritis History of atrial fibrillation Plan: Options were discussed with patient patient spouse who accompanied her to visit today including serve medical management is continued physical therapies and interventional techniques. Patient elects interventional techniques. We discussed a lumbar epidural steroid injections description as well as anatomical models to describe the procedure. Risks were discussed including but not limited to: Bleeding, infection, possibility of epidural hematoma and subsequent neurological compromise, dural puncture, headaches, spinal cord and/or nerve damage, side effects of steroid medication, and poor results regarding pain control. Patient understands and wished to proceed. Patient will return to clinic in approximate 2 weeks for follow-up, was counseled as return appointment, typical, and side effects to be aware of. Procedure is lumbar epidural steroid injection under local anesthetic using sterile prep and drape at the L4-5 level using C-arm fluoroscopic guidance in both AP and lateral views medications injected is 120 mg Depo-Medrol +10mL preservative-free normal saline and 2 mL contrast- condition at discharge is stable patient tolerated procedure well had no complications. ERIS RAMOS MD Jan 15, 2021 12:39
--- NOTE | 2021-01-15 12:40 | PDOC4 ---
Procedure Note: ICD 10 Code: ICD 10 Code: M54.16 M51.36 Procedure Note: Patient was consented for lumbar epidural steroid traction with fluoroscopic guidance. Risks were discussed including but not limited to: Bleeding, infection, possibility of epidural hematoma and subsequent neurological compromise, dural puncture, headaches, spinal cord and/or nerve damage, side effects of steroid medication, and poor results regarding pain control. Patient understands and wished to proceed. Procedure is lumbar epidural steroid injection under local anesthetic using sterile prep and drape at the L4-5 level using C-arm fluoroscopic guidance in both AP and lateral views medications injected is 120 mg Depo-Medrol +10mL preservative-free normal saline and 2 mL contrast- condition at discharge is stable patient tolerated procedure well had no complications. ERIS RAMOS MD Jan 15, 2021 12:40
== END | disposition home or self-care (01) ==
LOC: PNCL 09:27
PROVIDERS: ATTEND Anesthesiology
DX: M51.16 Intervertebral disc disorders with radiculopathy, lumbar region (principal); M79.605 Pain in left leg; I10 Essential (primary) hypertension; I48.91 Unspecified atrial fibrillation; G47.30 Sleep apnea, unspecified; E78.5 Hyperlipidemia, unspecified; Z85.828 Personal history of other malignant neoplasm of skin; Z79.899 Other long term (current) drug therapy; Z79.82 Long term (current) use of aspirin; Z98.890 Other specified postprocedural states
CPT/HCPCS: 62323; 99205; J1030; J1040; Q9965; G0463

== ENCOUNTER → 2021-03-01 | Outpatient (CLI) | payer MEDICARE, BC ==
--- NOTE | 2021-03-01 09:17 | PDOC ---
Progress Note - Pain Clinic Date of Service: DOS: DATE: 03/01/21 TIME: 09:14 Diagnosis: Dx: Lumbar radiculopathy with lumbar degenerative disc disease History or Present Illness: HPI: 70-year-old female returns for follow-up status post lumbar epidural steroid injection last seen January patient did very well about 75% improvement in the pain low back and left lower extremity patient reports the leg is doing much better but her main complaint today is back pain and some on the right side as well as the left which is new patient has been putting off for returning as her 's been sick and had a bowel resection which is been recovering from it is doing much better now patient reports she is having the pain returned in the low back again some on the right side now as well which is new but on the left leg occasionally as well patient reports is more noticeable in her back either way. Patient reports a form scale 10 is worst average and least over the past week and is a [address] aching and dull some shooting pain as well into the left lower extremity patient reports no bowel or bladder incontinence. Physical Exam: VS: Blood pressure is 106/60 pulse 73 respirations are 16 temperature 97.7 Height 5 foot weight is 116 PE: PHYSICAL EXAMINATION: GENERAL: The patient is awake, alert, oriented, appropriate, very pleasant in demeanor, patient accompanied by her . HEENT: Shows normocephalic, atraumatic. Extraocular movements are intact and symmetrical. Oral cavity: Mucous membranes moist and pink. NECK: Shows anterior throat supple without palpable lymphadenopathy noted. Swallow reflex symmetrical. CHEST: Shows normal on inspection. Breath sounds are clear bilaterally. HEART: Shows S1, S2 clear. No murmurs auscultated. ABDOMEN: Soft, nontender, nondistended. No palpable organomegaly is noted. BACK: Shows spine grossly in the midline. Normal-appearing cervical lordotic curvature. There is slightly increased thoracic kyphosis, some minor flattening of the lumbar lordotic curvature. Lumbar paraspinous muscles show symmetrical on inspection, on palpation shows some moderate tenderness diffusely throughout the upper, middle and lower distribution of the paraspinous muscles without specific trigger points, without radiation of pain. The patient has good rotational motion of the lumbar spine, both laterally as well as extension and flexion without significant difficulty. EXTREMITIES: Lower extremities show deep tendon reflexes 2+ in the patellar and tendo calcaneus tendons. Motor exam is 5 on a scale of 5 with right dorsiflexion, extension, quadriceps and hamstring flexion and 4/5 on the left. Peripheral pulses are 1+ posterior tibial. No peripheral edema is noted bilaterally. Lower extremities are warm and dry. SKIN: Shows warm and dry, good turgor. No edema. No sores, rashes or bruising throughout. Procedure: Procedure: Options discussed with patient. Patient chart reviews her current medication regimen updated current view systems updated today as well. We will proceed with a lumbar epidural steroid injection today with fluoroscopic guidance. Risks were discussed including but not limited to: Bleeding, infection, possibility of epidural hematoma and subsequent neurological compromise, dural puncture, headaches, spinal cord and/or nerve damage, side effects of steroid medication, and poor results regarding pain control. Patient understands and wished to proceed. Patient will return to the clinic in approximate 2 weeks for follow-up, was counseled return appointment, activity level, and side effect to be aware of. Medication Injected: Med Injected: Procedure is lumbar epidural steroid injection under local anesthetic using st erile prep and drape at the L4-5 level using C-arm fluoroscopic guidance in both AP and lateral views medications injected is 120 mg Depo-Medrol +10mL preservative-free normal saline and 2 mL contrast- condition at discharge is stable patient tolerated procedure well had no complications. Condition at Discharge: Condition at Discharge: Condition at discharge is stable, patient tolerated the procedure well and had no complications. ERIS RAMOS MD Mar 01, 2021 09:17
--- NOTE | 2021-03-01 09:18 | PDOC4 ---
Procedure Note: ICD 10 Code: ICD 10 Code: M54.16 M51.36 Procedure Note: Patient was consented for lumbar epidural steroid injection with fluoroscopic guidance. Risks were discussed including but not limited to: Bleeding, infection, possibility of epidural hematoma and subsequent neurological compromise, dural puncture, headaches, spinal cord and/or nerve damage, side effects of steroid medication, and poor results regarding pain control. Patient understands and wished to proceed. Procedure is lumbar epidural steroid injection under local anesthetic using sterile prep and drape at the L4-5 level using C-arm fluoroscopic guidance in both AP and lateral views medications injected is 120 mg Depo-Medrol +10mL preservative-free normal saline and 2 mL contrast- condition at discharge is stable patient tolerated procedure well had no complications. ERIS RAMOS MD Mar 01, 2021 09:18
== END | disposition home or self-care (01) ==
LOC: PNCL 08:16
PROVIDERS: ATTEND Anesthesiology
DX: M51.16 Intervertebral disc disorders with radiculopathy, lumbar region (principal); G89.29 Other chronic pain; I48.91 Unspecified atrial fibrillation; G47.30 Sleep apnea, unspecified; Z98.890 Other specified postprocedural states; Z79.899 Other long term (current) drug therapy; Z79.01 Long term (current) use of anticoagulants
CPT/HCPCS: 62323; J1030; J1040; Q9965

== ENCOUNTER → 2021-03-15 | Outpatient (CLI) | payer MEDICARE, BC ==
--- NOTE | 2021-03-15 10:41 | PDOC ---
Progress Note - Pain Clinic Date of Service: DOS: DATE: 03/15/21 TIME: 10:38 Diagnosis: Dx: Lumbar radiculopathy with lumbar degenerative disc disease History or Present Illness: HPI: 70-year-old female returns for follow-up status post lumbar epidural steroid injection x2. Patient reports 90% improvement since her last visit with pain returning in the low back and the left lower extremity but only very minimally patient reports it is more noticeable in the low back and in the leg at this time but she is increasing her distance walking doing household activities work activities travel with greater ease and comfort sleeping better at night patient reports does not awaken her from sleep any further she is very pleased with her progress thus far patient reports new pain of pain between the shoulder blades which seems to be more spastic and tight but without significant radiation she is notices over the past week or so when she was more active but no injury associated as well. Patient reports no bowel or bladder incontinence. Physical Exam: VS: Blood pressure is 109 pulse 88 respiration 16 temperature 97.9 F height is 5 foot weight is 113 pounds PE: PHYSICAL EXAMINATION: GENERAL: The patient is awake, alert, oriented, appropriate, very pleasant in demeanor HEENT: Shows normocephalic, atraumatic. Extraocular movements are intact and symmetrical. Oral cavity: Mucous membranes moist and pink. Dentition is intact. NECK: Shows anterior throat supple without palpable lymphadenopathy noted. Swallow reflex symmetrical. CHEST: Shows normal on inspection. Breath sounds are clear bilaterally, no rales or rhonchi. HEART: Shows S1, S2 clear. No murmurs auscultated. ABDOMEN: Soft, nontender, nondistended. No palpable organomegaly is noted. BACK: Shows spine grossly in the midline. Normal-appearing cervical lordotic curvature. There is increased thoracic kyphosis, some flattening of the lumbar lordotic curvature. Thoracic paraspinous posture between the scapula shows moderate tenderness with very firm musculature in the mid thoracic distribution paraspinous muscles but without specific trigger points without radiation. Patient shows good rotation motion of the thoracic spine both laterally as well as extension and forward flexion without significant increase in pain. Lumbar paraspinous muscles show symmetrical on inspection, on palpation shows some mode rate tenderness diffusely throughout the upper, middle and lower distribution of the paraspinous muscles without specific trigger points, without radiation of pain. The patient has good rotational motion of the lumbar spine, both laterally as well as extension and flexion without significant difficulty. EXTREMITIES: Lower extremities show deep tendon reflexes 2+ in the patellar and tendo calcaneus tendons. Motor exam is 5 on a scale of 5 with right dorsiflexion, extension, quadriceps and hamstring flexion and 4/5 on the left. Peripheral pulses are 1+ posterior tibial. No peripheral edema is noted bilaterally. Lower extremities are warm and dry. SKIN: Shows warm and dry, good turgor. No edema. No sores, rashes or bruising throughout. Procedure: Procedure: Options discussed with the patient. Patient's old chart was reviewed as her current medication regimen updated current review of systems updated today as well. We will proceed with a lumbar epidural steroid injection today with fluoroscopic guidance. Risks were discussed including but not limited to: Bleeding, infection, possibility of epidural hematoma and subsequent neurological compromise, dural puncture, headaches, spinal cord and/or nerve damage, side effects of steroid medication, and poor results regarding pain control. Patient understands and wished to proceed. Patient return to clinic in approximate 2 weeks for follow-up, was counseled as return appointment, activity level, and side effect to be aware of. Medication Injected: Med Injected: Procedure is lumbar epidural steroid injection under local anesthetic using sterile prep and drape at the L4-5 level using C-arm fluoroscopic guidance in both AP and lateral views medications injected is 120 mg Depo-Medrol +10mL preservative-free normal saline and 2 mL contrast- condition at discharge is stable patient tolerated procedure well had no complications. Condition at Discharge: Condition at Discharge: Condition at discharge stable, patient tolerated the procedure well and had no complications. ERIS RAMOS MD Mar 15, 2021 10:41
--- NOTE | 2021-03-15 10:42 | PDOC4 ---
Procedure Note: ICD 10 Code: ICD 10 Code: M54.16 M51.36 Procedure Note: Patient was consented for lumbar epidural steroid injection with fluoroscopic guidance. Risks were discussed including but not limited to: Bleeding, infection, possibility of epidural hematoma and subsequent neurological compromise, dural puncture, headaches, spinal cord and/or nerve damage, side effects of steroid medication, and poor results regarding pain control. Patient understands and wished to proceed. Procedure is lumbar epidural steroid injection under local anesthetic using sterile prep and drape at the L4-5 level using C-arm fluoroscopic guidance in both AP and lateral views medications injected is 120 mg Depo-Medrol +10mL preservative-free normal saline and 2 mL contrast- condition at discharge is stable patient tolerated procedure well had no complications. ERIS RAMOS MD Mar 15, 2021 10:42
== END | disposition home or self-care (01) ==
LOC: PNCL 09:56
PROVIDERS: ATTEND Anesthesiology
DX: M51.16 Intervertebral disc disorders with radiculopathy, lumbar region (principal); I48.91 Unspecified atrial fibrillation; G47.30 Sleep apnea, unspecified; Z85.828 Personal history of other malignant neoplasm of skin; Z79.82 Long term (current) use of aspirin; Z79.899 Other long term (current) drug therapy; Z98.890 Other specified postprocedural states
CPT/HCPCS: 62323; J1030; J1040; Q9965

== ENCOUNTER → 2021-03-19 | Outpatient (CLI) | payer MEDICARE, BC ==
[~2021-03-19] MED LIST changes: -IOHEXOL 180 MG/ML 10 ML VIAL. ONE; -methylPREDNISolone ACETATE 40 MG/ML VIAL. ONE; -methylPREDNISolone ACETATE 80 MG/ML VIAL. ONE
--- NOTE | 2021-03-20 11:11 | KCIC ---
US HEAD/NECK SOFT TISSUE History:Reason: LEFT MASS IN NECK / Spl. Instructions: / History: Comparison: None Technique: Sonographic examination of the left neck Findings: No mass, fluid collection or enlarged lymph node within the region the patient's palpable concern in the left neck. The internal jugular vein is within this region. The vein is patent. Impression: 1. No ultrasound evidence of abnormality within the region of the patient's palpable concern. Recomm end clinical follow-up. Electronically signed by: Joshua Howe DO (03/20/2021 11:09 AM) [id number]
== END ==
LOC: KCIC US 14:50
PROVIDERS: ATTEND Nurse Practitioner
DX: R22.1 Localized swelling, mass and lump, neck (principal)
CPT/HCPCS: 76536

== ENCOUNTER → 2021-03-27 | Outpatient (CLI) | payer MEDICARE, BC ==
[2021-03-27 12:15] LABS: BASO % 1 % (0-3); EOS # 0.1 x10^3/uL (0.0-0.7); EOS % 1 % (0-3); HEMATOCRIT 40.7 % (36.0-47.0); HEMOGLOBIN 13.7 g/dL (12.0-15.5); LYMPH # 2.3 x10^3/uL (1.0-4.8); LYMPH % 37 % (24-48); MEAN CORPUSCULAR HEMOGLOBIN 34 pg (25-35); MEAN CORPUSCULAR HGB CONC 34 g/dL (31-37); MEAN CORPUSCULAR VOLUME 100 fL (79-100); MONO # 0.7 x10^3/uL (0.0-1.1); MONO % 11 % (0-9); NEUT # 3.1 x10^3/uL (1.8-7.7); NEUT % 50 % (31-73); PLATELET COUNT 292 x10^3/uL (140-400); RED BLOOD COUNT 4.09 x10^6/uL (3.50-5.40); RED CELL DISTRIBUTION WIDTH 13.3 % (11.5-14.5); WHITE BLOOD COUNT 6.2 x10^3/uL (4.0-11.0)
[2021-03-27 12:47] LABS: ALBUMIN 3.5 g/dL (3.4-5.0); ALBUMIN/GLOBULIN RATIO 0.9 (1.0-1.7); CALCIUM 8.3 mg/dL (8.5-10.1); CREATININE 0.5 mg/dL (0.6-1.0); GFR 122.3; POTASSIUM 4.3 mmol/L (3.5-5.1); TOTAL BILIRUBIN 0.3 mg/dL (0.2-1.0); TOTAL PROTEIN 7.3 g/dL (6.4-8.2)
[2021-03-27 12:59] LABS: FREE T4 0.91 ng/dL (0.76-1.46); THYROID STIM HORMONE (TSH) 0.93 uIU/mL (0.358-3.74)
== END ==
LOC: LAB 11:51
PROVIDERS: ATTEND Internal Medicine Gastroenterology
DX: R63.4 Abnormal weight loss (principal)
CPT/HCPCS: 36415; 80053; 84439; 84443; 85025

== ENCOUNTER → 2021-03-28 | Outpatient (CLI) | payer MEDICARE, BC ==
--- NOTE | 2021-03-28 16:47 | KCIC ---
Chest radiograph 03/28/2021 10:43 AM INDICATION: Weight loss COMPARISON: 08/07/2020 TECHNIQUE: Frontal and lateral views of the chest are provided. FINDINGS: The cardiomediastinal silhouette is within normal limits. There are no pleural effusions. There is no pulmonary vascular congestion. There is no pneumothorax. The lungs are clear. No significant osseous abnormality is identified. Dextroconvex scoliosis of the thoracolumbar junctio n. IMPRESSION: No acute cardiopulmonary process. Electronically signed by: Cyndee Khalil MD (03/28/2021 4:45 PM) [id number]
== END ==
LOC: KCIC 10:39
PROVIDERS: ATTEND Internal Medicine Gastroenterology
DX: M41.85 Other forms of scoliosis, thoracolumbar region (principal); R63.4 Abnormal weight loss; R11.10 Vomiting, unspecified
CPT/HCPCS: 71046

== ENCOUNTER → 2021-05-02 | Outpatient (CLI) | payer MEDICARE, BC ==
[~2021-05-02] MED LIST changes: +GADOTERATE 5 MMOL/10ML VIAL. IVP ONE
--- NOTE | 2021-05-02 16:08 | KCIC ---
MRI BRAIN WO+W History:Reason: DISTURBANCE OF SMELL OR TASTE / Spl. Instructions: Known pituitary adenoma. / History : Changes in sensitivity to smells and weightloss x 5mths. 10cc Clariscan. Technique: Multiplanar, multi sequential without and with intravenous contrast MR imaging was perform ed of the brain. Comparison: May 10, 2019 and April 28, 2017 Findings: Enhancing lobulated mass along the planum sphenoidale with extension into the suprasellar cistern. Me asures 1.8 cm craniocaudal by 2.0 cm transverse by 1.1 cm anterior posterior. There is abutment and d isplacement of the anterior cerebral arteries. The mass is separate from the pituitary gland. There is mild mass effect on the pituitary gland. The pituitary infundibulum is deviated posteriorly. There is abutment and displacement of the prechiasmat ic optic nerves and optic chiasm. No acute infarct. No intracranial hemorrhage. No hydrocephalus. Other foci of FLAIR hyperintensities within the hemispheric white matter, most often due to chronic m icrovascular ischemia, unchanged. Persistent increased CSF within the optic nerve sheaths. Imaged paranasal sinuses and mastoid air ce lls are clear. Impression: 1. Unchanged enhancing mass along the planum sphenoidale with adjacent mass effect, as described. Fi ndings favor meningioma. Electronically signed by: Joshua Howe DO (05/02/2021 4:06 PM) [id number]
== END ==
LOC: KCIC MRI 08:23
PROVIDERS: ATTEND Nurse Practitioner
DX: R22.0 Localized swelling, mass and lump, head (principal); E23.7 Disorder of pituitary gland, unspecified; R83.8 Other abnormal findings in cerebrospinal fluid; R43.9 Unspecified disturbances of smell and taste
CPT/HCPCS: 70553; 82565; A9575